=== PATIENT | male | born 1950 | race Caucasian/White ===

== ENCOUNTER 2019-07-13 23:49 | Emergency (ER) | payer OTHER ==
[~2019-07-13] VITALS: Ht 180.3 cm; Wt 62.2 kg
[2019-07-13 23:52] VITALS: BP 147/84
[2019-07-14] MEDS ORDERED: LIDOCAINE 1%-EPI 1:100K, 20ML INFIL ONE (00:30)
[2019-07-14] MEDS ORDERED: LIDOCAINE 1%-EPI 1:100K, 20ML ONE (00:33)
--- NOTE | 2019-07-14 00:56 | NUR ---
ER AT BEDSIDE
[2019-07-14] MEDS ORDERED: BUPIVACAINE 0.25% ONE (01:00)
--- NOTE | 2019-07-14 01:22 | NUR ---
IN TO DC PT. PT NOT IN ROOM AT THIS TIME.
--- NOTE | 2019-07-14 01:27 | NUR ---
UNABLE TO LOCATE PT IN THE DEPARTMENT. REGISTRATION ALSO HAS NOT SEEN NOR CHECKED OUT THE PT. UNABLE TO CONTACT PT NO CONTACT INFORMATION IS RECORDED IN THIS VISIT. RX TO BE LEFT AT THE CHARGE NURSE STATION INCASE PT RETURNS
== END 2019-07-14 01:33 | disposition home or self-care (01) ==
LOC: ED 07-14 01:22
DX: K08.89 Other specified disorders of teeth and supporting structures (principal); F17.200 Nicotine dependence, unspecified, uncomplicated
CPT/HCPCS: 64999; 99284